=== PATIENT | male | born 1995 | race Caucasian/White ===

== ENCOUNTER 2020-12-24 18:12 | Emergency (ER) | payer MEDICAID ==
[~2020-12-24] VITALS: Ht 177.8 cm; Wt 104.0 kg
[2020-12-24 18:42] VITALS: BP 127/96
== END 2020-12-24 20:59 | disposition home or self-care (01) ==
LOC: ER 20:57
DX: R10.31 Right lower quadrant pain (principal); R10.2 Pelvic and perineal pain; N50.812 Left testicular pain; R19.04 Left lower quadrant abdominal swelling, mass and lump; Z88.0 Allergy status to penicillin
CPT/HCPCS: 99282

== ENCOUNTER 2020-12-29 07:18 | Emergency (ER) | payer MEDICAID ==
[~2020-12-29] VITALS: Ht 177.8 cm; Wt 96.7 kg
[2020-12-29 08:20] LABS: UA COLLECTION TYPE CLN CATCH MIDSTREAM
[2020-12-29 08:21] LABS: CLARITY,URINE CLEAR (Clear); COLOR,URINE YELLOW (Yellow); GLUCOSE, URINE NEGATIVE (Neg); KETONES,URINE NEGATIVE (Neg); LEUKOCYTE ESTERASE ,URINE NEGATIVE (Neg); NITRITES, URINE NEGATIVE (Neg); OCCULT BLOOD,URINE NEGATIVE (Neg); PROTEIN,URINE NEGATIVE (Neg); UROBILINOGEN,URINE 0.2 E.U/dL (0.2-1.0)
[2020-12-29] MEDS ORDERED: iohexol 300mg/ml 100ml inj. ONE (09:04)
[2020-12-29 09:57] LABS: BASOPHILS % (AUTO) 0.4 % (0-1); EOSINOPHILS % (AUTO) 0.4 % (0-6); HEMATOCRIT 43.2 % (42.0-52.0); LYMPHOCYTES # (AUTO) 1.2 X10'3 (1.1-4.8); LYMPHOCYTES % (AUTO) 19.6 % (21-51); MEAN CORPUSCULAR HEMOGLOBIN 30.6 PG (27.0-31.0); MEAN CORPUSCULAR HGB CONC 34.8 g/dL (33.0-36.5); MEAN CORPUSCULAR VOLUME 88.1 FL (78-98); MEAN PLATELET VOLUME 8.5 FL (7.4-10.4); MONOCYTES # (AUTO) 0.5 X10'3 (0-0.9); MONOCYTES % (AUTO) 8.2 % (2-12); NEUTROPHILS # (AUTO) 4.2 X10'3 (1.8-7.7); NEUTROPHILS % (AUTO) 71.4 % (42-75); PLATELET COUNT 230 X10'3 (140-440); RED CELL DISTRIBUTION WIDTH 13.1 % (11.5-14.5); WHITE BLOOD COUNT 5.9 X10'3 (4.5-11.0)
[2020-12-29 10:07] LABS: ALBUMIN 4.6 G/DL (3.4-5.0); ANION GAP 14 (8-16); BLOOD UREA NITROGEN 8 MG/DL (7-18); CALCIUM 8.7 MG/DL (8.5-10.1); CHLORIDE 102 MMOL/L (99-107); GLUCOSE 98 MG/DL (70-104); POTASSIUM 3.6 MMOL/L (3.5-5.1); SODIUM 139 MMOL/L (135-145); TOTAL CARBON DIOXIDE 22.8 MMOL/L (24-32); eGFR > 90 ML/MIN
[2020-12-29 10:51] VITALS: BP 136/95
--- NOTE | 2020-12-29 10:53 | NUR ---
Patient was seen and assessed by provider.
== END 2020-12-29 10:53 | disposition home or self-care (01) ==
LOC: ER 07:19
DX: R10.9 Unspecified abdominal pain (principal); R59.9 Enlarged lymph nodes, unspecified; Z88.0 Allergy status to penicillin
CPT/HCPCS: 36415; 74177; 80048; 81003; 85025; 99285; Q9967

== ENCOUNTER 2021-01-10 13:22 | Emergency (ER) | payer MEDICAID ==
--- NOTE | 2021-01-10 15:00 | NUR ---
called 3 times pt not in the lobby called around 1330 ,1345,1500.
== END 2021-01-10 15:11 | disposition left against medical advice (07) ==
LOC: ER 13:23
DX: R19.5 Other fecal abnormalities (principal); Z53.21 Procedure and treatment not carried out due to patient leaving prior to being seen by health care provider

== ENCOUNTER 2021-01-12 08:38 | Emergency (ER) | payer MEDICAID ==
[~2021-01-12] VITALS: Ht 177.8 cm; Wt 90.9 kg
[2021-01-12 08:40] VITALS: BP 136/86
== END 2021-01-12 09:22 | disposition home or self-care (01) ==
LOC: ER 08:39
DX: S39.011A Strain of muscle, fascia and tendon of abdomen, initial encounter (principal); Z88.0 Allergy status to penicillin; X58.XXXA Exposure to other specified factors, initial encounter; Y93.89 Activity, other specified; Y92.89 Other specified places as the place of occurrence of the external cause; Y99.8 Other external cause status
CPT/HCPCS: 99282

== ENCOUNTER 2021-01-27 07:27 | Emergency (ER) | payer MEDICAID ==
[~2021-01-27] VITALS: Ht 177.8 cm; Wt 90.9 kg
[2021-01-27 07:41] VITALS: BP 134/93
[2021-01-27] MEDS ORDERED: azithromycin 250mg tablet PO ONE (08:50)
[2021-01-27] MEDS ORDERED: CefTRIAXone 1000mg IM Kit (w/lidocaine diluent) IM STA (08:50)
== END 2021-01-27 09:18 | disposition home or self-care (01) ==
LOC: ER 07:28
DX: N50.89 Other specified disorders of the male genital organs (principal); L29.9 Pruritus, unspecified; Z88.0 Allergy status to penicillin; Z11.3 Encounter for screening for infections with a predominantly sexual mode of transmission
CPT/HCPCS: 96372; 99283; J0696

== ENCOUNTER 2021-02-05 20:40 | Emergency (ER) | payer MEDICAID ==
[~2021-02-05] VITALS: Ht 177.8 cm; Wt 95.5 kg
[2021-02-05 21:08] VITALS: BP 137/80
[2021-02-05] MEDS ORDERED: DOXY-411 PO (23:00)
[2021-02-05] MEDS ORDERED: DOXYCYCLINE 100MG CAPSULE PO STA (23:01)
== END 2021-02-05 23:26 | disposition home or self-care (01) ==
LOC: ER 20:42
DX: Z13.89 Encounter for screening for other disorder (principal); A64 Unspecified sexually transmitted disease; Z72.89 Other problems related to lifestyle; Z88.0 Allergy status to penicillin; Z88.1 Allergy status to other antibiotic agents; Z79.2 Long term (current) use of antibiotics
CPT/HCPCS: 99283

== ENCOUNTER 2021-02-09 03:33 | Emergency (ER) | payer MEDICAID ==
[~2021-02-09] VITALS: Ht 177.8 cm; Wt 96.4 kg
[~2021-02-09 03:33] MED LIST: DOXY-411 PO
[2021-02-09 03:53] VITALS: BP 135/86
[2021-02-09 04:32] LABS: CLARITY,URINE CLEAR (Clear); COLOR,URINE YELLOW (Yellow); GLUCOSE, URINE NEGATIVE (Neg); KETONES,URINE NEGATIVE (Neg); LEUKOCYTE ESTERASE ,URINE NEGATIVE (Neg); NITRITES, URINE NEGATIVE (Neg); OCCULT BLOOD,URINE NEGATIVE (Neg); PH,URINE 6.5 (4.8-8.0); PROTEIN,URINE NEGATIVE (Neg); UA COLLECTION TYPE CLN CATCH MIDSTREAM; UROBILINOGEN,URINE 0.2 E.U/dL (0.2-1.0)
[2021-02-09] MEDS ORDERED: DOXY-1 PO (09:36)
== END 2021-02-09 04:36 | disposition left against medical advice (07) ==
LOC: ER 03:34
DX: R30.9 Painful micturition, unspecified (principal); Z53.21 Procedure and treatment not carried out due to patient leaving prior to being seen by health care provider
CPT/HCPCS: 81003

== ENCOUNTER 2021-02-09 08:27 | Emergency (ER) | payer MEDICAID ==
[~2021-02-09] VITALS: Ht 177.8 cm; Wt 96.0 kg
[2021-02-09 08:33] VITALS: BP 148/93
[2021-02-09] MEDS ORDERED: DOXYCYCLINE 100MG CAPSULE PO ONE (08:40)
[2021-02-09] MEDS ORDERED: CefTRIAXone 1000mg IM Kit (w/lidocaine diluent) IM STA (08:40)
[2021-02-09] MEDS ORDERED: CefTRIAXone 500MG IM Kit w/LIDOcaine IM ONE (09:05)
[2021-02-09] MEDS ORDERED: DOXY-1 PO (09:36)
== END 2021-02-09 10:39 | disposition left against medical advice (07) ==
LOC: ER 08:28
DX: Z20.2 Contact with and (suspected) exposure to infections with a predominantly sexual mode of transmission (principal); N50.812 Left testicular pain; R30.0 Dysuria; R30.9 Painful micturition, unspecified; Z72.89 Other problems related to lifestyle; Z88.0 Allergy status to penicillin; Z88.1 Allergy status to other antibiotic agents; Z79.2 Long term (current) use of antibiotics
CPT/HCPCS: 36415; 87491; 99283

== ENCOUNTER 2022-08-14 08:35 | Emergency (ER) | payer MEDICAID ==
[~2022-08-14] VITALS: Ht 177.8 cm; Wt 108.2 kg
[2022-08-14 09:08] VITALS: BP 126/80
[2022-08-14] MEDS ORDERED: DOXYCYCLINE 100MG CAPSULE PO STA (09:15)
[2022-08-14] MEDS ORDERED: CefTRIAXone 500MG IM Kit w/LIDOcaine IM ONE (09:15)
[2022-08-14 09:57] LABS: CLARITY,URINE CLEAR (Clear); COLOR,URINE YELLOW (Yellow); GLUCOSE, URINE NEGATIVE (Neg); KETONES,URINE NEGATIVE (Neg); LEUKOCYTE ESTERASE ,URINE NEGATIVE (Neg); NITRITES, URINE NEGATIVE (Neg); OCCULT BLOOD,URINE NEGATIVE (Neg); PROTEIN,URINE NEGATIVE (Neg); UROBILINOGEN,URINE 0.2 E.U/dL (0.2-1.0)
[2022-08-14 10:03] LABS: UA COLLECTION TYPE CLN CATCH MIDSTREAM
[2022-08-14 10:54] LABS: HIV ANTIBODY 1&2 RAPID NON-REACTIVE (Neg)
[2022-08-15 15:38] LABS: HBSAG SCREEN Negative (Negative); HEPATITIS C VIRUS ANTIBODY Non Reactive (Non Reactive)
== END 2022-08-14 11:01 | disposition home or self-care (01) ==
LOC: ER 08:35
DX: Z11.3 Encounter for screening for infections with a predominantly sexual mode of transmission (principal); Z88.0 Allergy status to penicillin; Z88.1 Allergy status to other antibiotic agents
CPT/HCPCS: 36415; 81003; 86703; 86803; 87340; 87491; 87522; 99283

== ENCOUNTER 2022-08-15 11:00 | Emergency (ER) | payer MEDICAID ==
[~2022-08-15] VITALS: Ht 177.8 cm; Wt 100.0 kg
[2022-08-15 11:07] VITALS: BP 126/86
[2022-08-15] MEDS ORDERED: CefTRIAXone 250MG IM Kit w/LIDOcaine IM ONE (12:05)
[2022-08-15] MEDS ORDERED: azithromycin 250mg tablet PO STA (12:05)
--- NOTE | 2022-08-15 12:28 | NUR ---
PT ENDED UP REFUSING MEDICATIONS FOR STI TREATMENT, NO S/S PRESENT AND CONCERNED ABOUT TAKING TO MANY ATB. WHEN SEEN AMOUNT OF PILLS, DECIDED HE DID NOT NEED THEM. PT LEFT ED WALKING. VSS, SLIGHT INTERMITENT PAIN IN LOWER ABD, BUT TOLERABLE.
== END 2022-08-15 12:20 | disposition home or self-care (01) ==
LOC: ER 11:00
DX: A64 Unspecified sexually transmitted disease (principal); Z72.89 Other problems related to lifestyle; Z88.0 Allergy status to penicillin
CPT/HCPCS: 99281